=== PATIENT | female | born 1995 | race Caucasian/White ===

== ENCOUNTER 2017-05-29 16:27 | Emergency (ER) | payer OTHER ==
[~2017-05-29] VITALS: Ht 165.1 cm; Wt 98.0 kg
[~2017-05-29 16:27] MED LIST: CIPRO500 MG PO; COLACE100 MG PO; FLO4 PO; LAC PO; NORCO1 TA2 PO; ZARAH PO
[2017-05-29 16:34] VITALS: BP 142/70; Ht 165.1 cm; Wt 98.0 kg
== END 2017-05-29 18:04 | disposition home or self-care (01) ==
LOC: ED 16:27
DX: R21 Rash and other nonspecific skin eruption (principal); R03.0 Elevated blood-pressure reading, without diagnosis of hypertension; Z98.890 Other specified postprocedural states
CPT/HCPCS: J7512; Q0163

== ENCOUNTER 2017-11-05 06:00 | Emergency (ER) | payer OTHER ==
[~2017-11-05] VITALS: Ht 165.1 cm; Wt 100.2 kg
[2017-11-05 06:08] VITALS: Ht 165.1 cm; Wt 100.2 kg
[2017-11-05 06:42] VITALS: BP 142/94
== END 2017-11-05 06:42 | disposition home or self-care (01) ==
LOC: ED 06:00
DX: J02.9 Acute pharyngitis, unspecified (principal)

== ENCOUNTER 2018-01-27 12:59 | Emergency (ER) | payer OTHER ==
[~2018-01-27] VITALS: Ht 165.1 cm; Wt 99.3 kg
[2018-01-27 13:08] VITALS: Ht 165.1 cm; Wt 99.3 kg
[2018-01-27 13:45] VITALS: BP 143/78
== END 2018-01-27 13:45 | disposition home or self-care (01) ==
LOC: ED 12:59
DX: J02.9 Acute pharyngitis, unspecified (principal)